=== PATIENT | male | born 1995 | race Caucasian/White ===

== ENCOUNTER 2021-03-02 01:48 | Emergency (ER) | payer SELFPAY ==
[2021-03-02 01:53] VITALS: BP 150/90; BP 152/91; PULSE 105; PULSE 110; RESP 18; TEMP 36.6; O2SAT 97; O2SAT 99; BMI 26.6
[2021-03-02 01:56] VITALS: BP 152/91; PULSE 105; RESP 18; TEMP 36.6; O2SAT 97
--- NOTE | 2021-03-02 02:11 | PC.NURSE ---
PT EXPERIENCING INCREASED PAIN UPON PALPATION AND MOVEMENT TO RIGHT LOWER BACK. PT DENIES ANY URINARY SYMPTOMS. PT GIVEN WATER, ASKED FOR A URINE SAMPLE. PT DENIES FEVER OR NAUSEA. PT HAS DIFFICULTY SITTING UP WITHOUT HOLDING ONTO RAIL.
--- NOTE | 2021-03-02 02:11 | ED.BACK ---
HPI - Back Pain/Injury General Chief Complaint: Back Pain/Injury Stated Complaint: BACK PAIN Time Seen by Provider: 03/02/21 02:04 Source: patient Mode of arrival: ambulatory Limitations: no limitations History of Present Illness HPI Narrative: Patient comes emergency room complaining of right-sided back pain. Patient states that at work he has to lift heavy boxes, but does not recall getting injured. Patient states he feels that the back and the posterior aspect of the hamstring feel tight. Patient denies hematuria, denies urinary/fecal incontinence/retention. Denies fever or chills. Related Data Previous Rx's Medication Instructions Recorded cyclobenzaprine 10 mg PO TID PRN #10 tab 03/02/21 ibuprofen 600 mg PO TID PRN #10 tab 03/02/21 Allergies Allergy/AdvReac Type Severity Reaction Status Date / Time No Known Allergies Allergy Verified 03/02/21 01:59 Review of Systems Review of Systems: Constitutional : No Weight loss, No Fever, No Chills, No Night Sweats, No Fatigue, No Malaise ENT/Mouth : No Hearing loss, No Ear Pain, No Nasal Congestion, No Sinus Pain, No Hoarseness, No sore throat, No Rhinorrhea, No Swallowing Difficulty Eyes: No Eye Pain, No Swelling, No Redness, No Foreign Body, No Discharge, No Vision Changes Cardiovascular : No Chest Pain, No SOB, No Dyspnea on Exertion, No Orthopnea, No Edema, No Palpitations Respiratory : No Cough, No Sputum, No Wheezing, No Smoke Exposure, No Dyspnea Gastrointestinal : No Nausea, No Vomiting, No Diarrhea, No Constipation, No abdominal Pain, No Hematochezia, No Melena Genitourinary : no irregular bleeding, No Dysuria, No Urinary Frequency, No Hematuria, No Urinary Incontinence, No Urgency, No Flank Pain, No Urinary Flow Changes, No Hesitancy Musculoskeletal : Complaining of back pain and posterior right thigh pain on the right side, No Myalgias, No Joint Swelling Skin : No Skin Lesions, No rash Neuro : No Weakness, No Numbness, No Paresthesias, No Loss of Consciousness, No Dizziness, No Headache Psych : No Anxiety/Panic, No Depression, No SI/HI/AH/VH, No Social Issues, Heme/Lymph: No Bruising, No Bleeding,No Lymphadenopathy Endocrine : No Polyuria, No Polydipsia, No Temperature Intolerance [facility] Social History Social History Advance Directives: No Advance Directives Information Provided: No Physical Exam Vital Signs: Vital Signs: Last Vital Signs Temp 97.9 F 03/02/21 01:56 Pulse 105 H 03/02/21 01:56 Resp 18 03/02/21 01:56 BP 152/91 H 03/02/21 01:56 Pulse Ox 97 03/02/21 01:56 Body Mass Index 26.6 Appearance: Alert. Oriented X3. No acute distress. Eyes: Pupils equal, round and reactive to light. ENT: Pharynx normal. Neck: Normal inspection. Neck supple. No lymph nodes noted. No crepitus CVS: Normal heart rate and rhythm. Pulses normal. Normal S1 and S2 Respiratory: No respiratory distress. Breath sounds normal. No Wheezing. No rales Abdomen: Soft and nontender. No rigidity. No distention. Back: Muscle spasms in the back on the right side Skin: Skin warm and dry. Normal skin color. Normal skin turgor. Extremities: No lower extremity edema. Tight thigh muscle on the right side posterior aspect. No hip pain, normal range of motion. Neuro: Oriented X 3. No motor deficit. No sensory deficit. Moving all extermities. No slurred speech. Course Course Course Narrative: I discussed the physical exam with the patient, patient has a muscle spasm. Patient was given 1 dose of IM Toradol and cyclobenzaprine. Patient 's broader will pick him up MDM - Back Pain/Injury Lab Data Labs: Lab Results 03/02/21 Range/Units 03:28 Urine Color YELLOW Urine Appearance CLEAR Urine pH 6.0 (5.0-8.0) Ur Specific [place] >= 1.030 H (1.005-1.025) Urine Protein TRACE (NEG-TRACE) MG/DL Urine Glucose (UA) NEG (NEG) MG/DL Urine Ketones 5 (NEG) MG/DL Urine Blood NEG (NEG) Urine Nitrite NEG (NEG) Ur Leukocyte Esterase NEG (NEG) Discharge Plan Discharge Clinical Impression: Muscle spasm Patient Disposition: Home, Self-Care Instructions: Muscle Spasm (ED) Prescriptions: New cyclobenzaprine 10 mg tablet 10 mg PO TID PRN (Reason: muscle spasm) Qty: 10 RF: 0 ibuprofen 600 mg tablet 600 mg PO TID PRN (Reason: pain) Qty: 10 RF: 0
[2021-03-02] MEDS: Cyclobenzaprine HCl 10 MG TABLET PO (02:29)
[2021-03-02] MEDS: Ketorolac Tromethamine 60 MG/2 ML VIAL IM (02:29)
[2021-03-02 03:36] LABS: Glucose Urine UA NEG (NEG); Leukocyte Esterase Urine NEG (NEG); Nitrite Urine NEG (NEG); Specific Gravity - Urine >= 1.030 (1.005-1.025); Urine Blood NEG (NEG); Urine Ketones 5 MG/DL (NEG); Urine Protein TRACE MG/DL (NEG-TRACE)
[2021-03-02 03:37] LABS: Appearance Urine CLEAR; Color Urine YELLOW
[2021-03-02 03:57] VITALS: BP 139/88; PULSE 84; RESP 18; O2SAT 98
== END 2021-03-02 04:20 | disposition home or self-care (01) ==
LOC: HO.ED 02:24
PROVIDERS: Emergency Provider Emergency Medicine
DX: M62.830 Muscle spasm of back (principal); M54.5 Low back pain
CPT/HCPCS: 81003; 96372; 99284; 99285; J1885

== ENCOUNTER 2022-02-08 15:45 | Emergency (ER) | payer OTHER, SELFPAY ==
--- NOTE | ~2022-02-08 | XR_ITS ---
EXAMINATION: XR SHOULDER, LEFT CLINICAL INFORMATION: Fall COMPARISON: None TECHNIQUE: AP external rotation, Grashey, scapular Y, and axillary views of the left shoulder. FINDINGS: The bones and soft tissues are normal. No fracture. Glenohumeral and acromioclavicular alignment is anatomic with normal joint space. No abnormal soft tissue calcifications. XR/XR shoulder LT min 2V IMPRESSION: No fracture or dislocation.
[2022-02-08 15:49] VITALS: BP 160/103; PULSE 105; RESP 19; TEMP 36.6; O2SAT 99; BMI 28.8
--- NOTE | 2022-02-08 16:32 | ED.FALL ---
HPI - Fall General Chief Complaint: Fall Stated Complaint: fall - shoulder injury Time Seen by Provider: 02/08/22 16:12 Source: patient and family Mode of arrival: ambulatory Limitations: no limitations History of Present Illness HPI Narrative: 27-year-old male with a slip on water landing on the posterior left shoulder just prior to arrival. No hitting of the head or loss of consciousness. Related Data Previous Rx's Medication Instructions Recorded cyclobenzaprine 10 mg tablet 10 mg PO TID PRN #10 tab 03/02/21 ibuprofen 600 mg tablet 600 mg PO TID PRN #10 tab 03/02/21 cyclobenzaprine 10 mg tablet 10 mg PO TID PRN #14 tab 02/08/22 ibuprofen 800 mg tablet 800 mg PO Q8H PRN #20 tab 02/08/22 Allergies Allergy/AdvReac Type Severity Reaction Status Date / Time No Known Allergies Allergy Verified 02/08/22 15:52 Review of Systems Review of Systems: Yes all other systems are reviewed and are negative Constitutional: Constitutional: Reports no additional constitutional complaints, Denies body ache(s), Denies chills, Denies fever(s), Denies headache(s) and Denies weakness Eyes: Eyes: Reports no additional eye complaints and Denies change in vision ENT: Reports system reviewed and no additional complaints, except as documented, Denies dizziness, Denies headache(s), Denies nasal congestion, Denies nasal discharge and Denies neck pain Cardiovascular: Cardiovascular: Reports no additional cardiovascular complaints, Denies chest pain, Denies leg edema and Denies dyspnea Respiratory: Respiratory: Reports no additional respiratory complaints, Denies cough and Denies dyspnea Gastrointestinal: Gastrointestinal: Reports no additional gastrointestinal complaints, Denies abdominal pain, Denies diarrhea, Denies nausea and Denies vomiting Genitourinary: Genitourinary: Denies urinary incontinence Musculoskeletal: Musculoskeletal: Reports no additional musculoskeletal complaints, Denies back pain, Denies arthralgias, Denies joint swelling, Reports limited range of motion, Denies neck pain, Denies numbness and Denies tingling Integumentary/Breasts: Skin/Breast: Reports system reviewed and no additional complaints, except as docu and Denies rash Neurologic: Reports system reviewed and no additional complaints, except as documented, Denies Abnormal speech present, Denies dizziness, Denies headache(s), Denies numbness, Denies tingling and Denies weakness [facility] Past Medical History Attestation statement: The following information was validated with the patient. Source: old records reviewed and nursing notes reviewed Social History Social History Advance Directives: No Advance Directives Information Provided: No Physical Exam Vital Signs: Vital Signs: Last Vital Signs Temp 98 F 02/08/22 15:49 Pulse 105 H 02/08/22 15:49 Resp 19 02/08/22 15:49 BP 160/103 H 02/08/22 15:49 Pulse Ox 99 02/08/22 15:49 BMI result Body Mass Index 28.8 Const: General: cooperative, healthy appearing, comfortable and no acute distress Orientation/consciousness: patient oriented x3 Limitations: no limitations HEENT: Head: Yes normal to inspection Ears: hearing grossly normal bilaterally General nose exam: Normal external nose present Face and sinus: Yes normal facial exam Mouth: Normal oral and palatal mucosa present Throat: Yes posterior oropharynx normal Eyes: General: appearance normal, both eyes and all related structures Pupils: Equal, round and reactive pupils present Neck: Neck: Yes normal visual inspection Chest: Chest palpation & inspection: normal inspection of the chest Resp: Effort & Inspection: normal respiratory effort Auscultation: clear to auscultation bilaterally Cardio: Rate: regular rate Rhythm: regular rhythm Peripheral pulses: Peripheral pulses 2+ throughout GI: Inspection: Yes normal to inspection Palpation (GI): Soft to palpation and nontender Auscultation: normal bowel sounds Back/Spine/Pelvis: Thoracic/Lumbar Spine: thoracic and lumbar spine normal to inspection Skin: General skin exam: no rashes or lesions noted Neuro: General: patient oriented x3, no focal motor deficits and normal sensation to monofilament Cranial nerves: Yes Equal, round and reactive pupils present Cognition (Neuro): normal cognition Speech: No Abnormal speech present Gait exam (Neuro): Normal gait present Motor exam (neuro): 5/5 motor strength present throughout Extrem: Other: Pain over the posterior left shoulder and proximal humerus with limited abduction due to pain. Neurovascular intact distally General: Yes normal to inspection Course Course Course Narrative: 27-year-old male here with left shoulder pain after slip and fall. Will check x-rays, provide analgesia 1844-x-ray shows no acute fracture. Likely strain of the shoulder. Consider rotator cuff strain. Recommend follow-up with Orthopedics in 7 days or persistent pain. Patient placed in a sling. We reviewed rice. Reviewed worrisome signs and symptoms and when to return to the emergency department. Comfortable discharge home. Procedures Procedure Narrative Procedure Narrative: sling MDM - Fall Medical Records Attestation: I reviewed the patient's medical records. Lab Data Attestation: I reviewed the patient's lab results. Imaging Data shoulder xray: Attestation: I personally reviewed and interpreted this imaging study as follows: Radiologist's impression: [address] [address] XRay Report Signed Patient: Ruben Dougherty MR#: [id number] : 1995 Acct:[id number] Age/Sex: 27 / M ADM Date: 02/08/22 Loc: HO.ED Attending Dr: Ordering Physician: Ariadna Roca MD Date of Service: 02/08/22 Procedure(s): XR shoulder LT min 2V Accession Number(s): [id number] cc: Ariadna Roca MD~ EXAMINATION: XR SHOULDER, LEFT CLINICAL INFORMATION: Fall? COMPARISON: None? TECHNIQUE: AP external rotation, Grashey, scapular Y, and axillary views of the left shoulder. FINDINGS: The bones and soft tissues are normal. No fracture. Glenohumeral and acromioclavicular alignment is anatomic with normal joint space. No abnormal soft tissue calcifications.? XR/XR shoulder LT min 2V IMPRESSION: No fracture or dislocation. Discharge Plan Discharge Clinical Impression: Left shoulder strain Patient Disposition: Home, Self-Care Instructions: Rotator Cuff Injury (ED), Rotator Cuff Injury Exercises (DC) Additional Instructions: Limit use of the extremity Gentle stretching Heat or ice Follow-up with Orthopedics if continued pain Prescriptions: New ibuprofen 800 mg tablet 800 mg PO Q8H PRN (Reason: pain) Qty: 20 0RF cyclobenzaprine 10 mg tablet 10 mg PO TID PRN (Reason: muscle spasm) Qty: 14 0RF No Action cyclobenzaprine 10 mg tablet 10 mg PO TID PRN (Reason: muscle spasm) Qty: 10 0RF Rx Instructions: Do not operate machinery or drive after taking this medication ibuprofen 600 mg tablet 600 mg PO TID PRN (Reason: pain) Qty: 10 0RF Referrals: [facility] [place] Orthopedic Surgeons [Provider Group] - 1 week Stand Alone Forms: Work/School Release Interventions: ED Discharge Assessment Last Done: 02/08/22 18:14 Discharge Date/Time: 02/08/22 18:14
[2022-02-08] MEDS: diazePAM 2 MG TABLET PO (16:54)
== END 2022-02-08 18:14 | disposition home or self-care (01) ==
PROVIDERS: Emergency Provider Emergency Medicine
DX: M25.512 Pain in left shoulder (principal); Z79.899 Other long term (current) drug therapy
CPT/HCPCS: 73030; 99283